=== PATIENT | female | born 1980 | race Caucasian/White ===

== ENCOUNTER 2025-04-19 17:03 | Emergency (ER) | payer SELFPAY ==
--- OUTSIDE RECORDS SUMMARY | 2023-12-12 08:00 | XMS_ITS ---
Author Organization [facility] Address [address] [place] [address] Care Team Providers Care Waitstaff Name Role Phone Keron Serrato Primary Care Provider [phone] REASON FOR VISIT 3 MONTH F/U Medications Medication SIG (Take, Route, Frequency, Duration) Notes Start Date End Date Status metFORMIN HCl 500 MG Tablet 1 tab(s) orally 2 times a day; Duration: 90 days Active Losartan Potassium-HCTZ 100-25 MG Tablet 1 tablet Orally Once a day; Duration: 30 days Active Omeprazole 40 MG Capsule Delayed Release 1 cap(s) orally once a day; Duration: 90 days Active Albuterol Sulfate HFA 108 (90 Base) MCG/ACT Aerosol Solution 2 puff(s) inhaled every 4 hours as needed for cough or wheezing; Duration: 180 days 03/20/2023 Active Atorvastatin Calcium 20 MG Tablet 1 tab(s) orally once a day (at bedtime); Duration: 30 day(s) 11/16/2021 Active Metoprolol Tartrate 25 MG Tablet 1 tab(s) orally 2 times a day; Duration: 90 days Active metroNIDAZOLE 0.75 % Cream 1 application Externally Twice a day; Duration: 30 days please dispense largest tube available 08/11/2022 Active amLODIPine Besylate 5 MG Tablet 1 tab(s) orally once a day; Duration: 90 days Active Loratadine 10 MG Tablet 1 tablet Orally Once a day; Duration: 30 day(s) 08/11/2022 Active Flonase Allergy Relief 50 MCG/ACT Suspension 1 spray in each nostril once a day; Duration: 30 days Active Methocarbamol 750 MG Tablet 2 tab(s) orally twice a day; Duration: 30 day(s) Muscle relaxer Active Claritin 10 MG Tablet 1 tab(s) orally once a day; Duration: 30 day(s) Seasonal allergies Active Social History Social History Comprehensive Health Assessm ent Social Info Question Answer Notes : Date of assessment 08/01/2023 Reconciled Immunizations with Grits Yes Assessed Family/social cultural characteristics Yes Assessed communication needs Yes Medical History of Family Documented Yes Assessed Behaviors Affecting Health Yes Mental health/Substance abuse of patient and fam joni Yes Assessment for health literacy Yes Dental Query performed 08/11/2022 Dental care in the past 12 months? Yes Encounters Encounter Location Date [facility] [address] [address] 12/12/2023 Keron Serrato Plan Of Treatment No Information Progress Notes * Tiburcio CABALLEROOB:1979 (44 yo F)Acc No.[id number]:12/12/2023 UNLOCKED PROGRESS NOTE Progress Note Patient: Brook Benavides Provider: Ileana Ambriz MD :1980 A ge:43 Y S ex:Female Date:12/12/2023 Address:[facility] [address] [facility] Subjective: * Chief Complaints: * 3 MONTH F/U * ROS: R eview of Systems: Cardiovascular N o chest pain. R espiratory N o shortness of breath, At baseline breathing. G astroenterology N o nausea/vomiting, No problems with bowel movements, Usual BM pattern. G enitourinary N o problems with urination, good UOP. C onstitutional N o fever/chills. E yes N o blurred vision. N eurology n o headaches. S moking status N onsmoker. * Medical History: Hypertension Type 2 diabetes Hypercholestrolemia Back pain Carpal Tunnel Headaches Medical History Verified * Surgical History: carpal tunnel Surgical History verified. * Hospitalization/Major Diagno stic Procedure: No Hospitalization Documented. Hospitalization Verified. * Family History: F ather: . M other: alive, diagnosed with Diabetes, Hypertension. 1 son(s) , 2 daughter(s) - healthy. . F amily History Verified.. * Social History: C omprehensive Health Assessment: D ate of assessment 0 08/01/2023 R econciled Immunizations with Grits Y es A ssessed Family/social cultural characteristics Y es A ssessed communication needs Y es M edical History of Family Documented Y es A ssessed Behaviors Affecting Health Y es M ental health/Substance abuse of patient and family Y es A ssessment for health literacy Y es D ental Query performed 0 08/11/2022 D ental care in the past 12 months? Y es S ocial History Verified. * Medications: T akingMethocarbamol 750 MG Tablet 2 tab(s) orally twice a day , Notes to Pharmacist: Muscle relaxerClaritin 10 MG Tablet 1 tab(s) orally once a day , Notes to Pharmacist: Seasonal allergiesFlonase Allergy Relief 50 MCG/ACT Suspension 1 spray in each nostril once a day Loratadine 10 MG Tablet 1 tablet Orally Once a day metroNIDAZOLE 0.75 % Cream 1 application Externally Twice a day , Notes to Pharmacist: please dispense largest tube availableamLODIPine Besylate 5 MG Tablet 1 tab(s) orally once a day Metoprolol Tartrate 25 MG Tablet 1 tab(s) orally 2 times a day metFORMIN HCl 500 MG Tablet 1 tab(s) orally 2 times a day Losartan Potassium-HCTZ 100-25 MG Tablet 1 tablet Orally Once a day Omeprazole 40 MG Capsule Delayed Release 1 cap(s) orally once a day Albuterol Sulfate HFA 108 (90 Base) MCG/ACT Aerosol Solution 2 puff(s) inhaled every 4 hours as needed for cough or wheezing Atorvastatin Calcium 20 MG Tablet 1 tab(s) orally once a day (at bedtime) Medication List reviewed and reconciled with the patientTaking Methocarbamol 750 MG Tablet 2 tab(s) orally twice a day , Notes to Pharmacist: Muscle relaxerTaking Claritin 10 MG Tablet 1 tab(s) orally once a day , Notes to Pharmacist: Seasonal allergiesTaking Flonase Allergy Relief 50 MCG/ACT Suspension 1 spray in each nostril once a day Taking Loratadine 10 MG Tablet 1 tablet Orally Once a day Taking metroNIDAZOLE 0.75 % Cream 1 application Externally Twice a day , Notes to Pharmacist: please dispense largest tube availableTaking amLODIPine Besylate 5 MG Tablet 1 tab(s) orally once a day Taking Metoprolol Tartrate 25 MG Tablet 1 tab(s) orally 2 times a day Taking metFORMIN HCl 500 MG Tablet 1 tab(s) orally 2 times a day Taking Losartan Potassium-HCTZ 100-25 MG Tablet 1 tablet Orally Once a day Taking Omeprazole 40 MG Capsule Delayed Release 1 cap(s) orally once a day Taking Albuterol Sulfate HFA 108 (90 Base) MCG/ACT Aerosol Solution 2 puff(s) inhaled every 4 hours as needed for cough or wheezing Taking Atorvastatin Calcium 20 MG Tablet 1 tab(s) orally once a day (at bedtime) Medication List reviewed and reconciled with the patient * Allergies: y esAllergies Verified. Billing Information: * Procedure Codes: Care Plan Details* * Electronic signature of Keron Serrato MD on 04/19/2025 at 07:06 PM EST Sign off status: Pending Visit Status: N /S (No-Show) * Provider: Ileana Ambriz MD Date: 0 12/12/2023 Generated for Virginie costello/Ren/Jesusitting on: 06/19/2024 07:06 PM EST
--- OUTSIDE RECORDS SUMMARY | 2024-10-07 09:20 | XMS_ITS ---
Author Organization [facility] Address [facility] [place] [address] Care Team Providers Care Chemical Engineering Technologist Name Role Phone Keron Serrato Primary Care Provider [phone] REASON FOR VISIT HbA1c Encounters Encounter Location Date Provider Diagnosis [facility] [place] [address] 10/07/2024 Keron Serrato Plan Of Treatment No Information Progress Notes * Tiburcio CABALLEROOB:1979 (44 yo F)Acc No.[id number]:10/07/2024 UNLOCKED PROGRESS NOTE Progress Note Patient: Brook Benavides Provider: Ileana Ambriz MD :1980 A ge:44 Y S ex:Female Date:10/07/2024 Address[place] [facility] Subjective: * Chief Complaints: * H bA1c Care Plan Details* * Electronic signature of Keron Serrato MD on 04/19/2025 at 07:06 PM EST Sign off status: Pending Visit Status: C ANC BY OF (CANC BY OFFICE) * Provider: Ileana Ambriz MD Date: 0 10/07/2024 Generated for Printi ng/Faxing/eTransmitting on: 1 06/19/2024 07:06 PM EST
[2025-04-19] VITALS (19 sets, daily range): BP systolic 147–194; BP diastolic 99–124; PULSE 67–104; RESP 13–26; TEMP 36.6–36.8; O2SAT 97–100
--- NOTE | ~2025-04-19 | XR_ITS ---
EXAMINATION: XR chest 1V portable COMPARISON: No comparisons available. HISTORY: CHEST PAIN FINDINGS: The lungs are clear, no effusion. No pneumothorax. Heart is normal size. Mediastinal and hilar contours are within normal limits. Bony thorax no acute abnormality. Miscellaneous: None Impression: No acute cardiopulmonary abnormality. Reviewed, dictated and finalized at location [facility]. [facility] Impression: No acute cardiopulmonary abnormality.
--- NOTE | ~2025-04-19 | CT_ITS ---
EXAMINATION: CT brain wo con COMPARISON: None HISTORY: HEADACHE TECHNIQUE: Axial images were obtained through the brain without IV contrast. CT scan performed using dose optimization techniques including the following automated exposure control; adjustment of mA and/or kV; use of iterative reconstruction technique. Automatic exposure control was used to reduce radiation dose. Permanent radiation dose record is archived to PACS. FINDINGS: No acute infarct or parenchymal hemorrhage. No abnormal mass or mass effect. No midline shift. No extra-axial fluid collections. No hydrocephalus. . Mastoid air cells unremarkable. Sinuses and orbits unremarkable. No acute fracture. No significant facial or scalp soft tissue swelling evident. No radiopaque foreign body is seen. Impression: 1.No acute intracranial abnormality. Reviewed, dictated and finalized at location [facility]. [employer] Impression: 1.No acute intracranial abnormality.
--- NOTE | 2025-04-19 17:08 | ECG_ITS ---
Test Date: 2025-04-19 17:10:58 Measurements Intervals [place] Rate: 97 P: 28 PA: 142 QRS: 3 QRSD: 78 T: 46 QT: 335 QTc: 426 Interpretive Statements SINUS RHYTHM Poor R-wave progression No previous ECG available for comparison Electronically Signed On 04-20-2025 09:31:28 HADOOP APPLICATION DEVELOPER by Freddy Zamora M.D.
--- NOTE | 2025-04-19 17:26 | ED.GENADULT ---
HPI - General Adult General Chief complaint: Recheck/Abnormal Lab/Rx Stated complaint: htn Time Seen by Provider: 04/19/25 17:25 Source: patient Mode of arrival: ambulatory Limitations: no limitations History of Present Illness HPI narrative: 44 YEARS OLD WHITE FEMALE CAME TO THE ED WITH DIZZINESS, OCCIPITAL HEADACHE, DOES NOT FEEL GOOD, HARD TO BREATHE FOR THE LAST 2 WEEKS, STEADY. PATIENT RAN OUT OF BLOOD PRESSURE MEDICATION 1 MONTH AGO. PATIENT IS SUPPOSED TO BE ON LISINOPRIL, AMLODIPINE AND METOPROLOL OF UNKNOWN DOSES PATIENT IS FROM [place] SHE DENIES ANY FEVER, CHILLS, CHEST PAIN OR ABDOMINAL PAIN OR BACK PAIN Related Data Allergies Allergy/AdvReac Type Severity Reaction Status Date / Time No Known Allergies Allergy Verified 04/19/25 17:56 Review of Systems Review of Systems: All systems reviewed & are unremarkable except as noted in HPI and below Exam Narrative: GENERAL APPEARANCE: WELL-DEVELOPED, WELL-NOURISHED SKIN: NORMAL COLOR HEAD: NORMOCEPHALIC, NONTRAUMATIC EYES: CLEAR CONJUNCTIVA ENT: OROPHARYNX NORMAL, EARS NORMAL, NOSE NORMAL NECK: SUPPLE, NONTENDER CHEST AND RESPIRATORY: AIRWAY PATENT, NO RESPIRATORY DISTRESS, NO ACCESSORY MUSCLE USE HEART: REGULAR RATE/RHYTHM ABDOMEN: SOFT, NONTENDER, NO ORGANOMEGALY, QUIET BOWEL SOUNDS VASCULAR: NORMAL PERIPHERAL PULSES, NORMAL CAPILLARY REFILL. MUSCULOSKELETAL: NORMAL RANGE OF MOTION, NONTENDER BACK NEUROLOGIC: ALERT AND ORIENTED ?3, FOREST SCIENCE PROFESSOR IS NORMAL TESTED, NO GROSS MOTOR DEFICIT Course Vital Signs Vital signs: Vital Signs Temperature 36.6 C 04/19/25 17:04 Pulse Rate 104 H 04/19/25 17:04 Respiratory Rate 20 04/19/25 17:04 Blood Pressure 194/124 H 04/19/25 17:04 Pulse Oximetry 97 04/19/25 17:04 Oxygen Delivery Room Air 04/19/25 17:04 Temperature 36.6 C 04/19/25 17:04 Pulse Rate 67 04/19/25 19:03 Respiratory Rate 24 H 04/19/25 19:01 Blood Pressure 184/120 H 04/19/25 19:01 Pulse Oximetry 98 04/19/25 19:01 Oxygen Delivery Room Air 04/19/25 17:04 Medical Decision Making [facility] Narrative Medical decision making narrative: PATIENT RAN OUT OF BLOOD PRESSURE MEDICATION 1 MONTH AGO, 2 WEEKS LATER STARTED HAVING HEADACHE, DIZZINESS, HARD TO BREATHE, NOT FEELING WELL. VITAL SIGNS ON ARRIVAL SHOWING BLOOD PRESSURE 194/124, HEART RATE 104 OTHERWISE WITHIN NORMAL LIMIT PHYSICAL EXAMINATION SHOWING INSIGNIFICANT ABNORMALITIES EXCEPT DEPRESSION LIKE SIGNS DIFFERENTIAL DIAGNOSIS INCLUDE HYPERTENSIVE ENCEPHALOPATHY, RENAL FAILURE, CORONARY ARTERY DISEASE, CONGESTIVE HEART FAILURE, NONCOMPLIANCE WITH MEDICATIONS BLOOD WORKUP TODAY INCLUDES CBC, CMP, TROPONIN, PROBNP SHOWED WBC 10.1 PRO BNP 208, CHEST X-RAY SHOWED NO ACUTE ABNORMALITIES EKG ON ARRIVAL SHOWED NORMAL SINUS RHYTHM AT 97 BEATS PER MINUTE, MINIMAL CRITERIA FOR LVH, ANTERIOR MYOCARDIAL INFARCTION AGE INDETERMINATE, BORDERLINE EKG, NO PREVIOUS EKG AVAILABLE FOR COMPARISON CT HEAD WITHOUT CONTRAST SHOWED NO ACUTE ABNORMALITY Differential Diagnosis Differential Diagnosis: NONCOMPLIANCE WITH MEDICATION, UNCONTROLLED HYPERTENSION, Vital Signs Vital Signs: Vital Signs Temperature 36.6 C 04/19/25 17:04 Pulse Rate 104 H 04/19/25 17:04 Respiratory Rate 20 04/19/25 17:04 Blood Pressure 194/124 H 04/19/25 17:04 Pulse Oximetry 97 04/19/25 17:04 Oxygen Delivery Room Air 04/19/25 17:04 Temperature 36.6 C 04/19/25 17:04 Pulse Rate 67 04/19/25 19:03 Respiratory Rate 24 H 04/19/25 19:01 Blood Pressure 184/120 H 04/19/25 19:01 Pulse Oximetry 98 04/19/25 19:01 Oxygen Delivery Room Air 04/19/25 17:04 Lab Data 04/19/25 17:54 04/19/25 17:54 Labs: Lab Results 04/19/25 04/19/25 04/19/25 Range/Units 17:54 18:49 18:52 WBC 10.1 H (4.5-10.0) K/mm3 RBC 4.49 (4.2-5.4) M/mm3 Hgb 13.3 (12.0-15.0) g/dL Hct 37.5 (37.0-47.0) % MCV 83.5 (80-100) fl MCH 29.6 (26-34) pg MCHC 35.5 (32-36) g/dl RDW 12.0 (11.5-14.5) % Plt Count 377 H (150-375) k/mm3 MPV 9.1 (7.4-10.4) fl Immature Gran % (Auto) 0.3 (0-0.5) % Neut % (Auto) 63.0 (45.5-73.1) % Lymph % (Auto) 27.6 (18.3-44.2) % [place] % (Auto) 5.3 (2.6-8.5) % Eos % (Auto) 3.4 (0-4.4) % Baso % (Auto) 0.4 (0.2-1.2) % Lymph # (Auto) 2.79 (0.9-3.2) K/mm3 [place] # (Auto) 0.5 (0.1-0.6) K/mm3 Eos # (Auto) 0.3 (0-0.3) K/mm3 Baso # (Auto) 0.0 (0.0-0.1) K/mm3 Abs Immat Gran (auto) 0.03 (0.00-0.031) K/mm3 Absolute Neuts (auto) 6.4 (1.3-6.7) K/mm3 Absolute Nucleated RBC 0.000 (0.0-0.012) K/mm3 Nucleated RBC % 0.0 (0.0-0.2) % PT 13.7 (11.1-14.7) Seconds INR 1.1 APTT 24.5 (22.3-36.8) Seconds Sodium 139 (137-145) mmol/L Potassium 3.5 (3.4-5.0) mmol/L Chloride 106 (98-107) mmol/L Carbon Dioxide 26 (22-30) mmol/L Anion Gap 7 (4-12) mmol/L BUN 15 (7-17) mg/dL Creatinine 0.81 (0.7-1.0) mg/dL Estim Creat Clear Calc 80 ml/min Estimated GFR > 60 (59 - ) Glucose 157 H (65-110) mg/dL Calcium 9.1 (8.4-10.2) mg/dL Total Bilirubin 0.8 (0.2-1.3) mg/dL AST 33 (14-36) U/L ALT 25 (6-35) U/L Alkaline Phosphatase 69 (38-126) U/L Troponin I < 0.012 (0.000-0.034) ng/mL NT-Pro-B Natriuret Pep 208 H (19.9-100) pg/mL Total Protein 6.9 (6.3-8.2) g/dL Albumin 3.9 (3.5-5.1) g/dL Urine Color Yellow (Yellow) Urine Appearance Clear (Clear) Urine pH 6.0 (5.0-9.0) Ur Specific [place] 1.023 (1.001-1.035) Urine Protein Negative (Negative) mg/dL Urine Glucose (UA) Trace H (Negative) mg/dL Urine Ketones Negative (Negative) mg/dL Ur Blood (Man) Negative (Negative) Urine Nitrate Negative (Negative) Urine Bilirubin Negative (Negative) Urine Urobilinogen 0.2 (<2.0) mg/dL Leukocyte Esterase Rfl Negative (Negative) MANNY/UL POC Urine HCG, Qual Negative (Negative) Imaging Data Radiologist's impression: Impressions Head CT 04/19/25 17:49 Impression: 1.No acute intracranial abnormality. Chest X-Ray 04/19/25 17:53 Impression: No acute cardiopulmonary abnormality. ECG Data EKG #1: Attestation: I personally reviewed and interpreted this ECG as follows: ECG completion date: 04/19/25 Interpretation: NORMAL SINUS RHYTHM AT 97 BEATS PER MINUTE, CRITERIA FOR LVH, POSSIBLE ANTERIOR MYOCARDIAL INFARCTION INDETERMINATE AGE, BORDERLINE EKG, NO OLD EKG AVAILABLE FOR COMPARISON Critical Care Time Critical Care Time Critical Care Time: No Discharge Plan Discharge Clinical Impression: Hypertension, Non-compliance Patient Disposition: Home Condition: Improved Instructions: Hypertension (ED) Additional Instructions: RETURN IF SYMPTOMS ARE WORSENING , CALL YOUR FAMILY PHYSICIAN FOR APPOINTMENT, TAKE TYLENOL NEEDED FOR ACHES AND PAIN, CONTINUE HOME MEDICATIONS. Patient Language: Japanese Prescriptions: New losartan 50 mg tablet 50 mg PO DAILY Qty: 30 0RF amlodipine 5 mg tablet 5 mg PO DAILY Qty: 30 0RF metoprolol tartrate 25 mg tablet 25 mg PO BID Qty: 30 0RF Follow-up/Referrals: PHYSICIAN NOT ON STAFF,NONSTAFF [Primary Care Provider] Fahad Latham MD [Physician, Family Practice] - 04/22/25
[2025-04-19] MEDS: METOPROLOL TARTRATE INJ 5 MG/5 ML VIAL IV PUSH ×3 (17:58→19:03)
[2025-04-19 18:03] LABS: Hematocrit 37.5 % (37.0-47.0); Hemoglobin 13.3 g/dL (12.0-15.0); Immature Granulocyte Percent A 0.3 % (0-0.5); Lymphocytes Absolute Auto 2.79 K/mm3 (0.9-3.2); Mean Corpuscular HGB Conc 35.5 g/dl (32-36); Mean Corpuscular Hemoglobin 29.6 pg (26-34); Mean Corpuscular Volume 83.5 fl (80-100); Nucleated Red Blood Cells Absolute Auto 0.000 K/mm3 (0.0-0.012); Nucleated Red Blood Cells Perc 0.0 % (0.0-0.2); Platelet Count Result 377 k/mm3 (150-375); Red Blood Count 4.49 M/mm3 (4.2-5.4); White Blood Count 10.1 K/mm3 (4.5-10.0)
--- OUTSIDE RECORDS SUMMARY | 2025-04-19 18:06 | XMS_ITS | Clinical Summary ---
Author Organization [facility] Address [address] [place] [address] Care Team Providers Care Press Tender Star [place] Name Role Phone Unavailable Primary Care Provider Unavailabl e Medications QUEtiapine (SEROQUEL) 50 MG tabletIndications: Rosacea 07/11/19 20 Active omeprazole (PRILOSEC) 40 MG capsuleIndications :Rosacea Take 40 mg by mouth daily 03/14/20 20 Active amoxicillin (AMOXIL) 875 mg tabletIndications: Rosacea Take 875 mg by mouth 2 (two) times daily 02/14/20 20 Active rosuvastatin (CRESTOR) 5 MG tabletIndications: Neck pain rosuvastatin 5 mg tablet 1 po qd 01/14/20 20 Active neomycin-polymyxin -hydrocortisone (CORTISPORIN) otic solutionIndication s:Neck pain neomycin-polymyxi n-hydrocort 3.5 mg/mL-10,000 unit/mL-1 % ear solution 12/11/19 20 Active traMADoL (ULTRAM) 50 mg tabletIndications: Chronic neck pain Take 1 tablet (50 mg total) by mouth every 8 (eight) hours as needed 30 tablet 0 11/18/19 22 Active DULoxetine (CYMBALTA) 60 MG capsuleIndications :Rosacea 07/11/19 20 Active methocarbamoL (ROBAXIN) 750 MG tabletIndications: Chronic neck pain Take 1 tablet (750 mg total) by mouth 3 (three) times daily as needed 45 tablet 0 11/18/19 22 Active azithromycin 250 mg tabletIndications: Cough present for greater than 3 weeks Take 2 tablets (500 mg) on Day 1, followed by 1 tablet (250 mg) once daily on Days 2 through 5. 6 tablet 0 03/15/20 21 Active buPROPion HCL (WELLBUTRIN XL) 150 mg 24 hr tabletIndications: Neck pain bupropion HCl XL 150 mg 24 hr tablet, extended release 12/11/19 20 Active promethazine-dextr omethorphan (PROMETHAZINE-DM) 6.25-15 mg/5 mL syrupIndications:C ough present for greater than 3 weeks Take 5 mLs by mouth nightly as needed for Cough 118 mL 0 03/15/20 21 Active traZODone (DESYREL) 100 MG tabletIndications: Neck pain trazodone 100 mg tablet 12/11/19 20 Active fexofenadine (CHEPE) 180 MG tabletIndications: Rosacea Take by mouth 10/19/19 18 Active ondansetron (ZOFRAN) 4 MG tablet Take 1 tablet (4 mg total) by mouth every 12 (twelve) hours as needed for Nausea 15 tablet 0 11/18/19 22 Active risperiDONE (RISPERDAL) 3 MG tabletIndications: Rosacea 07/20/19 20 Active polyethylene glycol (GOLYTELY) 236-22.74-6.74 -5.86 gram oral solutionIndication s:Neck pain GaviLyte-G 236 gram-22.74 gram-6.74 gram-5.86 gram oral solution 01/14/20 20 Active cephalexin (KEFLEX) 500 MG capsuleIndications :Neck pain cephalexin 500 mg capsule 1 po BID 12/11/19 20 Active ondansetron (ZOFRAN-ODT) 4 MG disintegrating tabletIndications: Neck pain ondansetron 4 mg disintegrating tablet 12/11/19 20 Active acetaminophen-code ine (TYLENOL #3) 300-30 mg per tabletIndications: Neck pain acetaminophen 300 mg-codeine 30 mg tablet 12/11/19 20 Active naproxen (NAPROSYN) 500 MG tabletIndications: Rosacea 500 mg 1 tab, PO, Tab, BID, # 20 tab, Refill(s) 0 05/23/20 15 Active ibuprofen (MOTRIN) 600 MG tabletIndications: Rosacea 600 mg 03/11/20 20 Active mupirocin (BACTROBAN) 2 % ointmentIndication s:Rosacea mupirocin 2 % topical ointment topically TID 12/11/19 20 Active dicyclomine (BENTYL) 20 mg tabletIndications: Neck pain dicyclomine 20 mg tablet 12/11/19 20 Active meloxicam (MOBIC) 15 MG tabletIndications: Rosacea meloxicam 15 mg tablet 1 po qd 12/11/19 20 Active ARIPiprazole (ABILIFY) 10 mg tabletIndications: Rosacea Take by mouth 08/25/19 18 Active diclofenac (VOLTAREN) 75 MG EC tabletIndications: Neck pain diclofenac sodium 75 mg tablet,delayed release 12/11/19 20 Active predniSONE (DELTASONE) 50 MG tabletIndications: Neck pain prednisone 50 mg tablet 12/11/19 20 Active oxyCODONE-acetamin ophen (PERCOCET) 5-325 mg per tabletIndications: Lumbar spondylolysis Take 1 tablet by mouth every 8 (eight) hours as needed 40 tablet 0 09/08/19 21 Active QUEtiapine (SEROQUEL) 100 MG tabletIndications: Rosacea Take 100 mg by mouth nightly 07/24/19 20 Active ibuprofen (MOTRIN) 600 MG tabletIndications: Rosacea TAKE 1 TABLET BY MOUTH EVERY 6 HOURS NEEDED FOR CRAMPS/PAIN 03/11/20 20 Active amLODIPine (NORVASC) 5 mg tablet Take 1 tablet (5 mg total) by mouth daily for blood pressure 30 tablet 0 07/08/19 22 Active tiZANidine (ZANAFLEX) 4 MG tabletIndications: Muscle spasm Take 1 tablet (4 mg total) by mouth every 8 (eight) hours as needed 30 tablet 5 05/18/20 20 Active gabapentin (NEURONTIN) 300 MG capsuleIndications :Neck pain Take 1 capsule (300 mg total) by mouth 3 (three) times daily 90 capsule 5 01/14/20 20 Active famotidine (PEPCID) 40 MG tabletIndications: Rosacea Take 1 tablet (40 mg total) by mouth 2 (two) times daily as needed for Heartburn 60 tablet 5 05/18/20 20 Active metFORMIN (GLUCOPHAGE) 500 MG tabletIndications: Rosacea Take 1 tablet (500 mg total) by mouth daily with breakfast 90 tablet 1 05/18/20 20 Active Active Problems Problem Noted Date Diagnosed Date Type 2 diabetes mellitus wit hout complication, without long-term current use of insulin 01/21/2020 Neck pain 01/21/2020 Muscle spasm 01/21/2020 Rash of face 08/05/2019 Rosacea 08/05/2019 Chronic idiopathic constipation 07/01/2019 Dizziness and giddiness 07/01/2019 Pressure sensation in both ears 07/01/2019 Pars defect with spondylolisthesis 10/30/2018 Radiculopathy of thoracolumbar region 10/17/2018 Notalgia 10/17/2018 Hyperglycemia 10/17/2018 Essential hypertension 10/17/2018 Immunizations Immunization Administration Dates Next Due Hepatitis A / Hepatitis B (WPJ=884) 01/30/2008,0 01/01/2008 Influenza Inj (PF) Quad 0.5ml (EDZ=441) 02/16/20 18,02/14/2018 Influenza Inj (PF) TRIVALENT 0.5ml (CSQ=166) ,03/20/2013 Family History Medical History Relation Name Comments Hypertension Father Depression Maternal Uncle Stroke Maternal Uncle Diabetes Mother Hypertension Mother Stroke Paternal Uncle Relation Name Status Comments Father Alive Maternal Uncle Mother Alive Paternal Uncle Social History Tobacco Use Types Packs/Day Years Used Date Smoking Tobacco: Former Cigarettes Q uit: 06/30/2020 Smokeless Tobacco: Never Alcohol Use Standard Drinks/Week Comments Not Currently 0 (1 standard drink = 0.6 oz pur e alcohol) Comments Unknown Sex and Gender Information Value Date Recorded Sex Assigned at Not on file Legal Sex Female 2:27 AM EST Gender Identity Not on file Sexual Orientation Not on file Last Filed Vital Signs Vital Sign Reading Time Taken Comments Blood Pressure 133/98 11/17/2021 8:44 AM EDT Pulse 81 11/17/2021 8:44 AM EDT Temperature 36.8 C (98.2 F) 03/15/2021 2:25 PM EDT Respiratory Rate - - Oxygen Saturation 95% 03/15/2021 2:25 PM EDT Inhaled Oxygen Concentration - - Weight 94.3 kg (208 lb) 11/17/2021 8:44 AM EDT Height 160 cm (5' 3) 11/17/2021 8:44 AM EDT Body Mass Index 36.85 11/17/2021 8:44 AM EDT Plan of Treatment Health Maintenance Due Date Last Done Comments DIABETES Nephropathy Screening Microalbumin 1980 Hepatitis C Screening 1980 TdaP/Td Vaccine (1 - Tdap) 1991 Pneumococcal Vaccine 19-49 years At Risk patient (1 of 2 - PCV) 1999 Pap + HPV Screening 2001 Hepatitis B Vaccine (3 of 3 - Hep B Twinrix 3-dose series) 07/03/2008 01/30/2008, 01/01/2008 DIABETES Hemoglobin A1c 04/23/2019 10/21/2018 DIABETES Foot Exam 03/13/2023 DIABETES Retinal Dilated Eye Exam 03/13/2023 Mammogram Screening 03/13/2023 08/07/2014 Influenza Vaccine (#1) 2025 8, 02/14/2018, 05/03/2014, Additional history exists Hepatitis A Vaccine Aged Out 01/30/2008, 8 No longer eligible based on patient's age to complete this topic Meningococcal ACWY Vaccine Aged Out N o longer eligible based on patient's age to complete this topic Procedures Procedure Name Priority Date/Time Associated Diagnosis Comments HISTORICAL HEMOGLOBIN A1C W/REFL TO GLYCOMARK Routine 10/21/2018 1:50 PM EDT Hyperglycemia LEGACY MAMMO DIAGNOSTIC [facility]ILATERAL Routine 08/07/2014 11:25 AM EST Lump or mass in breast from Last 3 Months or Most Recently Relevant to Health Maintenance Results * Historical Hemoglobin A1c (10/21/2018 1:50 PM EDT) Hemoglobin A1C 6.1 4.2 - 6.8 % OF TOTAL HGB 10/21/2018 6:58 PM EDT OTHER LAB; SEE [facility] [employer] [facility] Estimated Average Glucose (MG/DL) 128.4 mg/dL 10/21/2018 6:58 PM EDT OTHER LAB; SEE [facility] Comment: THE ESTIMATED AVERAGE GLUCOSE WAS CALCULATED USING THE EQUATION (28.7 X HA1C) - 46.7. Blood 10/21/2018 1:50 PM EDT Narrative OTHER LAB; SEE [facility] - 10/21/2018 6:58 PM EDT Specimen Type:Blood us Conversions Provider LAB BLOOD ORDERABLES Fin al Result OTHER LAB; SEE [facility] * LEGACY MAMMO DIAGNOSTIC [facility] (08/07/2014 11:25 AM EST) Anatomical Region Laterality Modality Breast Mammography Narrative 08/07/2014 12:56 PM EST PROCEDURE / CPT CODE:MAMMO DIAGNOSTIC [facility] BILATERAL ORDERING PRIORITY :RTN DATE/TIME PERFORMED :08/07/2014 11:25 DICTATING RADIOLOGIST:TRAVIS KING CLINICAL INDICATIONS: ORDERING PHYSICIAN :MARVA COPELAND Digital diagnostic mammogram with tomosynthesis views. CAD assistance. Indication:Clinical breast exam abnormality left breast Prior: None this is baseline Findings: The breast is composed of scattered fibroglandular density. No mass, distortion, or suspicious calcification. Tomosynthesis images are negative. No abnormality in the left lateral breast, mostly fatty tissue in the area of reported palpable concern. Ultrasound to further assess. In the left lateral breast there is normal, mostly fatty tissue.. Impression: 1. Negative bilateral baseline mammogram, recommend annual screening beginning at age 40. 2. Negative assessment of palpable area left lateral breast. Recommend clinical followup. BI-RADS 1, negative. Electronically signed by: TRAVIS KING M.D. 08/07/2014 12:56 PM Procedure Note Travis King MD - 08/27/2023 PROCEDURE / CPT CODE:MAMMO DIAGNOSTIC MARY KATE BILATERAL ORDERING PRIORITY :RTN DATE/TIME PERFORMED :08/07/2014 11:25 DICTATING RADIOLOGIST:TRAVIS KING CLINICAL INDICATIONS: ORDERING PHYSICIAN :MARVA COPELAND Digital diagnostic mammogram with tomosynthesis views. CAD assistance. Indication:Clinical breast exam abnormality left breast Prior: None this is baseline Findings: The breast is composed of scattered fibroglandular density. No mass, distortion, or suspicious calcification. Tomosynthesis images are negative. No abnormality in the left lateral breast, mostly fatty tissue in the area of reported palpable concern. Ultrasound to further assess. In the left lateral breast there is normal, mostly fatty tissue.. Impression: 1. Negative bilateral baseline mammogram, recommend annual screening beginning at age 40. 2. Negative assessment of palpable area left lateral breast. Recommend clinical followup. BI-RADS 1, negative. Electronically signed by: TRAVIS KING M.D. 08/07/2014 12:56 PM us Conversions Provider MD JALLOH MAMMOGRAPHY ORDERABL ES Final Result from Last 3 Months or Most Recently Relevant to Health Maintenance
--- OUTSIDE RECORDS SUMMARY | 2025-04-19 18:06 | XMS_ITS | Patient Health Record ---
Author Organization [facility] Address [address] [place] [address] [place] [address] Care Team Providers Care [place] Name Role Phone Danii Castaneda Unavailable [phone] Juliano Osorio Unavailable Unavailable Reason For Referral No Information Medications Medication SIG (Take, Route, Frequency, Duration) Notes Start Date End Date Status SEROquel 25 mg tablet 1 tab(s) orally 3 times a day; Duration: 30 day(s) Active amLODIPine Besylate 2.5 mg tablet 1 tab(s) orally once a day; Duration: 30 day(s) Active Losartan Potassium 25 mg tablet 1 tab(s) orally once a day; Duration: 30 day(s) Active metFORMIN HCl 500 mg tablet 1 tab(s) ora lly 2 times a day; Duration: 30 day(s) Active risperiDONE 1 mg tablet 1 tab(s) orally 2 times a day; Duration: 30 day(s) Active Social History Tobacco Use: Social History Observation Description Date Details (start date - stop date) Current Smoker NA - NA Social History General Social Info Question Answer Notes DO NOT ANSWER HEREAnswer Above in TOBACCO CONTROL-Smoking Do you smoke? Yes Alcohol Control Did you have a drink containing alcohol in the past year? No Points 0 Interpretation Negative Tobacco Control Are you a: Current smoker Drug/Alcohol: Social Info Question Answer Notes OPIOID Risk Tool (2018 Edition) Family Hx Alcohol? No Family Hx Illegal Drugs? No Family Hx Rx Drugs? No Personal Hx Alcohol? No Personal Hx Illegal Drugs? No Personal Hx Rx Drugs? No Age between 16-45 years? No History of Preadolescent Sexual Abuse? No ADD, OCD, Bipolar, Schizophrenia? Yes Depression? No TOTAL SCORE 2 Risk Level for Opioid Use low Problems Problem Type SNOMED Code ICD Code Onset Dates Problem Status W/U Status Risk Notes Problem Acquired spondylolisthesis (285305207) Spondylolisthesis , lumbar region (M43.16) Active confirmed Problem Degeneration of lumbar intervertebral disc (82178322) Other intervertebral disc degeneration, lumbar region (M51.36) Active confirmed Plan Of Treatment No Information Insurance Providers Payer Name Payer Address Payer Phone Subscriber Number Group Number Insured Name Patient Relationship to Insured Coverage Start Date Coverage End Date Medicaid [employer] [address] [address] [place] [address] [id number] [place] [employer] Self - patient is the insured 9 Medical (General) History Medical History History ICD Code Hypertension Diabetes mellitus Anxiety disorder Surgical History Surgery Date(Month/Year) Tubal ligation carpal tunnel Hospitalization History Reason Date(Month/Year) see surgical list
--- OUTSIDE RECORDS SUMMARY | 2025-04-19 18:06 | XMS_ITS | Clinical Summary ---
Author Organization [facility] em Address [address] [place] [address] Care Team Providers Care Pastry Cook Apprentice Name Role Phone Gabriel Blount MD Primary Care Provider [phone] Allergies No known active allergies Medications mupirocin (Bactroban) 2 % ointment mupirocin 2 % topical ointment topically TID 0 Active oxycodone HCl (ROXICODONE) 10 mg tablet Take by mouth Active cephalexin (KEFLEX) 500 MG capsule Take 1 capsule (500 mg total) by mouth 4 (four) times a day 40 capsule 4 Active losartan (COZAAR) 25 MG tablet Take 1 tablet (25 mg total) by mouth daily Active amLODIPine (NORVASC) 5 MG tablet Take 1 tablet (5 mg total) by mouth daily Active metFORMIN (GLUCOPHAGE) 500 MG tablet Take 1 tablet (500 mg total) by mouth 2 (two) times a day Active Active Problems Problem Noted Date Diagnosed Date Injury of right ulnar nerve, unspecified injury location, initial encounter 05/21/2024 Muscle spasm 04/25/2024 Acute cystitis without hematuria 04/25/2024 Unresponsive 04/25/2024 Methamphetamine abuse 04/25/2024 Immunizations Immunization Administration Dates Next Due Tdap 05/18/2024 Social History Tobacco Use Types Packs/Day Years Used Date Smoking Tobacco: Every Day Cigarettes Smokeless Tobacco: Never Tobacco Cessation:Ready to Q uit: Not Asked; Counseling Given: Not Answered Alcohol Use Standard Drinks/Week Comments Not Currently 0 (1 standard drink = 0.6 oz pur e alcohol) Comments No Sex and Gender Information Value Date Recorded Sex Assigned at Not on file Legal Sex Female 10:06 PM EDT Gender Identity Not on file Sexual Orientation Not on file Last Filed Vital Signs Vital Sign Reading Time Taken Comments Blood Pressure 125/95 05/30/2024 11:32 AM EST Pulse 66 05/30/2024 11:32 AM EST Temperature 37 C (98.6 F) 05/30/2024 11:32 AM EST Respiratory Rate 18 05/30/2024 11:32 AM EST Oxygen Saturation 100% 05/30/2024 11:32 AM EST Inhaled Oxygen Concentration 21% 05/18/2024 3 :19 PM EST Weight 79.4 kg (175 lb 0.7 oz) 05/30/2024 11:32 AM EST Height 160 cm (5' 3) 05/30/2024 11:32 AM EST Body Mass Index 31.01 05/30/2024 11:32 AM EST Plan of Treatment Health Maintenance Due Date Last Done Comments HIV SCREENING 1980 HIV Screening Every 1 Year 1980 HIV Screening Once 1980 Hepatitis C Screening 1980 COVID-19 Vaccine (1 of 4) 1992 HEPATITIS B VACCINES (1 of 3 - 19+ 3-dose series) 1999 Pneumococcal Vaccine: 0 to 64 Years (1 of 2 - PCV) 1999 HPV/Cotest 2010 Cervical Cancer Screening 04/09/2020 Pap Smear 04/09/2020 04/09/2017 Mammogram 2020 Influenza vaccine (#1) 2025 8, 02/14/2018, 05/03/2014, Additional history exists DTAP/TDAP/TD (2 - Td or Tdap) 05/18/2034 05/18/2024 RSV (1 - 1-dose 75+ series) 2055 Meningococcal B Aged Out No longer el igible based on patient's age to complete this topic Procedures Procedure Name Priority Date/Time Associated Diagnosis Comments PAP SMEAR Routine 04/09/2017 10:30 AM EDT from Last 3 Months or Most Recently Relevant to Health Maintenance Results * PAP Smear (04/09/2017 10:30 AM EDT) 04/09/2017 10:3 0 AM EDT Narrative MCG CONVERSION - 04/10/2017 12:41 PM EDT ADDENDUM NOTE: Testing was performed and interpreted at the [facility], [place], [place]. Please see powerchart for their report. Test Ordered: HPV GENOTYPING Specimen: Cervical specimens in PreservCyt solution. Result: 1 HPV16 Negative 2 HPV18 Negative 3 HPV Other (31,33,35,39,45,51,52,56,58,59,66 and 68) Negative Methodology: The yazan HPV ([facility]) test is a FDA approved IVD test. Major processes involved for this test is (1) automated specimen preparation to simultaneously extract HPV and Cellular DNA (2)PCR amplification of target DNA sequences with gene specific primers and (3) real time detection of cleaved fluorescent l abeled HPV and beta-globin specific oligonucleotide detection probe. The Yazan HPV test uses primers to define a sequence of approximately 200 nucleotides within the polymorphic L1 region of the HPV genome. A pool of HPV primers present in the master mix is designed to amplify HPV DNA from 14 high-risk types (16,18,31,33,35,39,45,51,52,56,58,59,66 and 68). The amplified signals from 12 high-risk (HR) HPV types (31,33,35,39,45,51,52,56,58,59,66 and 68)is detected using same fluorescent dye, while HPV16, HPV18 and beta globin signals (internal control)signals are each detected with their own dedicated fluorescent dye. Test Limitations: The Yazan HPV test detects DNA of the above mentioned 14 high-risk types. This test does not detect DNA of HPV low-risk types (e.g.6, 11, 42, 43, 44). The performance of the Yazan HPV test has not been adequately established for HPV vaccinated individuals. Test only the indicated specimen type. The Yazan HPV test has only been validated for use with cervical specimens collected in PreservCyt solution using a Pap Perfect plastic spatula and Cytobrush plus GT gentle touch. Detection of high-risk HPV is dependent on the number of copies present in the specimen and may be affected by specimen collection methods, patient factors, stage of infection and the presence of interfering substances. A negative high-risk HPV result does not exclude the possibility of future cytologic HSIL or underlying CIN2-3 or cancer. Reference: Laboratory Procedure Manual for yazan HPV Test ([employer] Disclaimer: Yazan HPV test does not constitute a definitive HPV report for all HPV infection individuals. Thus, interpretation is given as a probability. It should be realized that there are many possible sources of diagnostic error. Genotyping errors can result from trace contamination of polymerase chain reactions and from rare genetic variants that interfere with analysis. [facility] is certified by CLIA ([id number]) for high complexity clinical testing. I attest I have personally reviewed the specimen/slides and agree with the above findings.Darren Romero MDElectronic SignatureVerified: 13-Apr-2017 15:00NGP/Resident:CIGAR MAKING SUPERVISOR CYTOLOGIC DIAGNOSIS INTERPRETATION Cervical/Vaginal:- Negative for intraepithelial lesion or malignancy. CIGAR MAKING SUPERVISOR CYTOLOGIC ADEQUACY INTERPRETATION Satisfactory for interpretation. Endocervical cells present. CIGAR MAKING SUPERVISOR CYTOLOGIC CLINICAL HISTORY Date of LMP: 03-19-17 : _ Hormones: _ Other clinical information: _ The Pap Smear is a screening test designed to help detect premalignant and malignant conditions of the uterine cervix. It is not a diagnostic test and should not be used as a sole means of detecting cervical cancer. Both false-negative and false- positive reports occur.Solutions Sales Executive:KADEEM 10-Apr-2017 12:41Completed by: Evangelista Dyer Electronic Signature 10-Apr-2017 12:41GYN CYTOLOGIC GROSS DESCRIPTION Received a thin prep vial with 35 ml of hazy fluid. Procedure Note 04/03/2024 ADDENDUM NOTE: Testing was performed and interpreted at the [place], [place]. Please see powerchart for their report. Test Ordered: HPV GENOTYPING Specimen: Cervical specimens in PreservCyt solution. Result: 1 HPV16 Negative 2 HPV18 Negative 3 HPV Other (31,33,35,39,45,51,52,56,58,59,66 and 68) Negative Methodology: The yazan HPV ([facility]) test is a FDA approved IVD test. Majorprocesses involved for this test is (1) automated specimen preparation tosimultaneously extract HPV and Cellular DNA (2)PCR amplification of targetDNA sequences with gene specific primers and (3) real time detection ofcleaved fluorescent l abeled HPV and beta-globin specific oligonucleotidedetection probe. The Yazan HPV test uses primers to define a sequence ofapproximately 200 nucleotides within the polymorphic L1 region of the HPVgenome. A pool of HPV primers present in the master mix is designed toamplify HPV DNA from 14 high-risk types(16,18,31,33,35,39,45,51,52,56,58,59,66 and 68). The amplified signalsfrom 12 high-risk (HR) HPV types (31,33,35,39,45,51,52,56,58,59,66 and68)is detected using same fluorescent dye, while HPV16, HPV18 and betaglobin signals (internal control)signals are each detected with their owndedicated fluorescent dye. Test Limitations: The Yazan HPV test detects DNA of the above [id number] high-risk types. This test does not detect DNA of HPV low-risk types(e.g.6, 11, 42, 43, 44). The performance of the Yazan HPV test has notbeen adequately established for HPV vaccinated individuals. Test only theindicated specimen type. The Yazan HPV test has only been validated foruse with cervical specimens collected in PreservCyt solution using a PapPerfect plastic spatula and Cytobrush plus GT gentle touch. Detection ofhigh-risk HPV is dependent on the number of copies present in the specimenand may be affected by specimen collection methods, patient factors, stageof infection and the presence of interfering substances. A negativehigh-risk HPV result does not exclude the possibility of future cytologicHSIL or underlying CIN2-3 or cancer. Reference: Laboratory Procedure Manual for yazan HPV Test ([employer] Disclaimer: Yazan HPV test does not constitute a definitive HPV report forall HPV infection individuals. Thus, interpretation is given as aprobability. It should be realized that there are many possible sources ofdiagnostic error. Genotyping errors can result from trace contamination ofpolymerase chain reactions and from rare genetic variants that interferewith analysis. [facility] is certified by CLIA([id number]) for high complexity clinical testing. I attest I have personally reviewed the specimen/slides and agree with theabove findings.Darren Romero MDElectronic SignatureVerified: :00NGP/JHResident:CIGAR MAKING SUPERVISOR CYTOLOGIC DIAGNOSIS INTERPRETATION Cervical/Vaginal:- Negative for intraepithelial lesion or malignancy. CIGAR MAKING SUPERVISOR CYTOLOGIC ADEQUACY INTERPRETATION Satisfactory for interpretation. Endocervical cells present. CIGAR MAKING SUPERVISOR CYTOLOGIC CLINICAL HISTORY Date of LMP: 03-19-17 : _ Hormones: _ Other clinical information: _ The Pap Smear is a screening test designed to help detect premalignant andmalignant conditions of the uterine cervix. It is not a diagnostic testand should not be used as a sole means of detecting cervical cancer. Bothfalse-negative and false- positive reports occur.Solutions Sales Executive:[id number] 12:41Completed by: Evangelista Mclain Signature 10-Apr-2017 12:41GYN CYTOLOGIC GROSSDESCRIPTION Received a thin prep vial with 35 ml of hazy fluid. Adalberto Carlson MD PATHOLOGY/CYTOLOGY ORDERABLES Fi nal Result MCG CONVERSION from Last 3 Months or Most Recently Relevant to Health Maintenance Insurance MEDICAID / [place] MED[place] / [place] Care Teams Pastry Cook Apprentice Relationship Specialty Start Date End Date Gabriel Blount MD PCP - General Family Medicine 05/30/24
--- OUTSIDE RECORDS SUMMARY | 2025-04-19 18:06 | XMS_ITS | Patient Health Record ---
Author Organization [facility] Address [address] [place] [id number] Care Team Providers Care Zipper Joiner Name Role Phone Keron Serrato Primary Care Provider Allergies No Known Allergies Results Component Value Reference Range Flag Notes LIPID PANEL WITH RATIOS Reviewed date:07/11/2024 08:40:57 AM Interpretation:LDL 117, HDL 41 Performing Lab: Notes/Report: PATIENT COULD NOT VOID/PMD COLLECTION KIT GIVEN TO PATIENT. PATIENT ADVISED TO RETURN. CHOLESTEROL, TOTAL 178 <200 mg/dL N HDL CHOLESTEROL 41 > OR = 50 mg/dL L TRIGLYCERIDES 102 <150 mg/dL N LDL-CHOLESTEROL 117 H Reference range: <100 Desirable range <100 mg/dL for primary prevention; <70 mg/dL for patients with CHD or diabetic patients with > or = 2 CHD risk factors. LDL-C is now calculated using the Maria Guadalupe calculation, which is a validated novel method providing better accuracy than the Friedewald equation in the estimation of LDL-C. Yannick PALOMO et al. MARY. 2013;310(19): 8161-1091 (http://education.[employer].com/faq/FAQ16 4) CHOL/HDLC RATIO 4.3 <5.0 (calc) N LDL/HDL RATIO 2.9 Below average Risk: <2.34 Average Risk: 2.35-4.12 Moderate Risk: 4.13-5.56 High Risk: >5.57 NON HDL CHOLESTEROL 137 <130 mg/dL (calc) H For patients with diabetes plus 1 major ASCVD risk factor, treating to a non-HDL-C goal of <100 mg/dL (LDL-C of <70 mg/dL) is considered a therapeutic option. TSH+FREE T4 Reviewed date:07/11/2024 08:38:43 AM Interpretation:normal Performing Lab: Notes/Report: PATIENT COULD NOT VOID/PMD COLLECTION KIT GIVEN TO PATIENT. PATIENT ADVISED TO RETURN. TSH 1.03 N Reference Range > or = 20 Years 0.40-4.50 Ranges First trimester 0.26-2.66 Second trimester 0.55-2.73 Third trimester 0.43-2.91 T4, FREE 1.2 0.8-1.8 ng/dL N CBC (H/H, RBC, INDICES,$WBC, PLT) Reviewed date:07/11/2024 08:38:58 AM Interpretation:WBC 12.8 Performing Lab: Notes/Report: PATIENT COULD NOT VOID/PMD COLLECTION KIT GIVEN TO PATIENT. PATIENT ADVISED TO RETURN. WHITE BLOOD CELL COUNT 12.8 3.8-10.8 Thousand/uL H RED BLOOD CELL COUNT 5.12 3.80-5.10 Million/uL H HEMOGLOBIN 14.9 11.7-15.5 g/dL N HEMATOCRIT 43.7 35.0-45.0 % N MCV 85.4 80.0-100.0 fL N MCH 29.1 27.0-33.0 pg N MCHC 34.1 32.0-36.0 g/dL N For adults, a slight decrease in the calculated MCHC value (in the range of 30 to 32 g/dL) is most likely not clinically significant; however, it should be interpreted with caution in correlation with other red cell parameters and the patient's clinical condition. RDW 11.7 11.0-15.0 % N PLATELET COUNT 368 140-400 Thousand/uL N MPV 10.4 7.5-12.5 fL N ALBUMIN, RANDOM URINE W/CREA TININE Reviewed date:08/19/2024 09:14:21 AM Interpretation: Performing Lab: Notes/Report: Comp. Metabolic Panel (14) Reviewed date:07/11/2024 08:38:21 AM Interpretation: Performing Lab: Notes/Report: PATIENT COULD NOT VOID/PMD COLLECTION KIT GIVEN TO PATIENT. PATIENT ADVISED TO RETURN. GLUCOSE 116 65-99 mg/dL H Fasting reference interval For someone without known diabetes, a glucose value between 100 and 125 mg/dL is consistent with prediabetes and should be confirmed with a follow-up test. UREA NITROGEN (BUN) 23 7-25 mg/dL N CREATININE 1.00 0.50-0.99 mg/dL H EGFR 71 > OR = 60 mL/min/1.73m2 N BUN/CREATININE RATIO 23 6-22 (calc) H SODIUM 144 135-146 mmol/L N POTASSIUM 3.8 3.5-5.3 mmol/L N CHLORIDE 107 98-110 mmol/L N CARBON DIOXIDE 24 20-32 mmol/L N CALCIUM 9.7 8.6-10.2 mg/dL N PROTEIN, TOTAL 7.1 6.1-8.1 g/dL N ALBUMIN 4.4 3.6-5.1 g/dL N GLOBULIN 2.7 1.9-3.7 g/dL (calc) N ALBUMIN/GLOBULIN RATIO 1.6 1.0-2.5 (calc) N BILIRUBIN, TOTAL 0.8 0.2-1.2 mg/dL N ALKALINE PHOSPHATASE 80 31-125 U/L N AST 15 10-30 U/L N ALT 11 6-29 U/L N Reason For Referral No Information Medications Medication SIG (Take, Route, Frequency, Duration) Notes Start Date End Date Status Metoprolol Tartrate 25 MG Tablet TAKE 1 TABLET BY MOUTH 2 TIMES A DAY Orally Twice a day; Duration: 3 days Active Atorvastatin Calcium 20 MG Tablet 1 tab(s) orally once a day (at bedtime); Duration: 30 day(s) 11/16/2021 Active metroNIDAZOLE 0.75 % Cream 1 application Externally Twice a day; Duration: 30 days please dispense largest tube available 08/11/2022 Active Flonase Allergy Relief 50 MCG/ACT Suspension 1 spray in each nostril once a day; Duration: 30 days Active Methocarbamol 750 MG Tablet 2 tab(s) orally twice a day; Duration: 30 day(s) Muscle relaxer Active Claritin 10 MG Tablet 1 tab(s) orally once a day; Duration: 30 day(s) Seasonal allergies Active metFORMIN HCl 500 MG Tablet 1 tab(s) orally 2 times a day; Duration: 90 days Active amLODIPine Besylate 5 MG Tablet 1 tab(s) orally once a day; Duration: 90 days Active Loratadine 10 MG Tablet 1 tablet Orally Once a day; Duration: 30 day(s) 08/11/2022 Active Albuterol Sulfate HFA 108 (90 Base) MCG/ACT Aerosol Solution 2 puff(s) inhaled every 4 hours as needed for cough or wheezing; Duration: 180 days 03/20/2023 Active Omeprazole 40 MG Capsule Delayed Release 1 cap(s) orally once a day; Duration: 90 days Active Losartan Potassium-HCTZ 100-25 MG Tablet 1 tablet Orally Once a day; Duration: 30 days Active Sulfamethoxazole-Trime thoprim 800-160 MG Tablet 1 tablet Orally twice a day; Duration: 10 days 07/10/2024 Active Social History Tobacco Use: Social History Observation Description Date Details (start date - stop date) Current Smoker NA - NA Social History Sexual Orientation Social Info Question Answer Notes Sexual Orientation Sexual Orientation Straight ( not lesbian or almaguer) Gender Identify Gender Identity Female General info Social Info Question Answer Notes Alcohol Did you have drink c ontaining alcohol in past year No Points 0 Interpretation Negative SMOKING HISTORY: Do you smoke or use other tobacco p roducts Current How ofter do you smoke cigarettes/use tobacco products every day How many cigarettes do you smoke /or # of times you use tobacco products per day? 6 to 10 How soon after waking do you smoke your first cigarette/use tobacco products? 6-30 min How interested are you in stopping smoking/tobacco products? not ready to quit Additional Findings: Tobacco User Heavy cigarett e smoker (20-39 cigs/day) Comprehensive Health Assessm ent Social Info Question Answer Notes : Date of assessment 07/10/2024 Reconciled Immunizations with Grits Yes Assessed Family/social cultural characteristics Yes Assessed communication needs Yes Medical History of Family Documented Yes Assessed Behaviors Affecting Health Yes Mental health/Substance abuse of patient and fam joni Yes Assessment for health literacy Yes Dental Query performed 08/11/2022 Dental care in the past 12 months? Yes Problems Problem Type SNOMED Code ICD Code Onset Dates Problem Status W/U Status Risk Notes Problem Body mass index 30.00 to 34.99 (526425524247180) Body mass index (BMI) 32.0-32.9, adult (Z68.32) 07/10/19 25 Active confirmed Problem Obese (934082444) Obese (E66.9) 07/10/19 25 Active confirmed Problem Tobacco user (008354889) Nicotine dependence, cigarettes, uncomplicated (F17.210) Active confirmed Problem Obese class II (475209488684065) Body mass index (BMI) 35.0-35.9, adult (Z68.35) Active confirmed Problem Body mass index 35.00 to 39.99 (038157991406727) Body mass index (BMI) 36.0-36.9, adult (Z68.36) Active confirmed Problem Body mass index 35.00 to 39.99 (989143734265367) Body mass index (BMI) 37.0-37.9, adult (Z68.37) Active confirmed Problem Body mass index 35.00 to 39.99 (113494265935691) Body mass index (BMI) 38.0-38.9, adult (Z68.38) Active confirmed Problem Hyperlipidemia (54081243) Hyperlipidemia (E78.5) Active confirmed Problem Gastroesophageal reflux disease (920807017) GERD (gastroesophageal reflux disease) (K21.9) Active confirmed Problem Type 2 diabetes mellitus (92119990) DMII (diabetes mellitus, type 2) (E11.9) Active confirmed Problem Seasonal allergy (230294396) Seasonal allergies (J30.2) Active confirmed Problem Upper respiratory infection (48721130) URI (upper respiratory infection) (J06.9) Active confirmed Problem Essential hypertension (72658960) Essential hypertension (I10) Active confirmed Problem Schizoaffective disorder (59373846) Schizo affective schizophrenia (F25.0) Active confirmed Problem Rosacea (493901732) Rosacea (L71.9) Active conf irmed Problem Counseling (497914544) Drug or alcohol risk assessment or counseling (Z71.89) Active confirmed Problem Visual Disturbance (36750166) Blurry vision, bilateral (H53.8) Active confirmed Problem Low back pain (859582629) Low back pain, unspecified (M54.50) Active confirmed Vital Signs Heart Rate 92 /min 07/10/2024 Temperature 97.3 degrees Fahrenheit 07/10/2024 Respiratory Rate 16 /min 07/10/2024 Oximetry 98 % 07/10/2024 Blood pressure diastolic 100 mm Hg 07/10/2024 Weight-kg 82.42 kg 07/10/2024 Height 63 in 07/10/2024 Blood pressure systolic 156 mm Hg 07/10/2024 Weight 181.7 lbs 07/10/2024 BMI 32.18 kg/m2 07/10/2024 Encounters Encounter Location Date [facility] [address] [place] [address] 07/10/2024 Keron Serrato Obese E66.9 ; Dietar y counseling Z71.3 ; Exercise counseling Z71.89 ; Body mass index (BMI) 32.0-32.9, adult Z68.32 ; Essential hypertension I10 ; DMII (diabetes mellitus, type 2) E11.9 ; GERD (gastroesophageal reflux disease) K21.9 ; URI (upper respiratory infection) J06.9 ; Seasonal allergies J30.2 ; Rosacea L71.9 and Wound, open, finger S61.A Assessments Encounter Date Diagnosis (ICD Code) Assessment Notes Treatment Notes Treatment Clinical Notes Section Notes 07/10/2024 Dietary counseling (ICD-10 - Z71.3) 07/10/2024 Obese (ICD-10 - E66.9) 07/10/2024 Exercise counseling (ICD-10 - Z71.89) 07/10/2024 Body mass index (BMI) 32.0-32.9, adult (ICD-10 - Z68.32) 07/10/2024 Essential hypertension (ICD-10 - I10) 07/10/2024 DMII (diabetes mellitus, type 2) (ICD-10 - E11.9) 07/10/2024 GERD (gastroesophageal reflux disease) (ICD-10 - K21.9) 07/10/2024 URI (upper respiratory infection) (ICD-10 - J06.9) 07/10/2024 Seasonal allergies (ICD-10 - J30.2) 07/10/2024 Rosacea (ICD-10 - L71.9) 07/10/2024 Wound, open, finger (ICD-10 - S61.209A) advised she see wound clinic at [facility] Plan Of Treatment Pending Test Test Name Order Date Hemoglobin A1c 01/11/2022 CBC With Differential/Platelet 3 Lipid Panel With LDL/HDL Ratio 3 Lipid Panel 01/11/2022 Comp. Metabolic Panel (14) 08/11/2022 TSH, 3RD GENERATION W/REFLEX TO FT4 07/20 Albumin/Creat Ratio, Random Ur 3 Insurance Providers Payer Name Payer Address Payer Phone Subscriber Number Group Number Insured Name Patient Relationship to Insured Coverage Start Date Coverage End Date [place] [address] [place] [phone] [id number] [employer]il Self - patient is the insured 2 Medical (General) History Medical History History ICD Code Hypertension type 2 diabetes hypercholestrolemia back pain Carpal Tunnel Headaches Surgical History Surgery Date(Month/Year) carpal tunnel
--- OUTSIDE RECORDS SUMMARY | 2025-04-19 18:06 | XMS_ITS | Encounter Summary ---
Author Organization [facility] Address [address] [place] [address] Care Team Providers Care Macaroni Maker Name Role Phone Unavailable Primary Care Provider Unavailabl e Encounter Details Date Type Department Care Team (Late st Contact Info) Description 12/17/2019 Historical Anesthesia [facility] [address] [place] [id number] Ciro Reynoso [address] [place], [place] [id number] Social History Tobacco Use Types Packs/Day Years Used Date Smoking Tobacco: Never Assessed Comments Unknown Sex and Gender Information Value Date Recorded Sex Assigned at Not on file Legal Sex Female 2:27 AM EST Gender Identity Not on file Sexual Orientation Not on file documented as of this encounter Plan of Treatment Not on file documented as of this encounter Visit Diagnoses Not on filedocumented in this encounter
[2025-04-19 18:13] LABS: INR 1.1; Prothrombin Time 13.7 Seconds (11.1-14.7)
[2025-04-19 18:14] LABS: Partial Thromboplastin Time 24.5 Seconds (22.3-36.8)
[2025-04-19 18:27] LABS: Alanine Aminotransferase 25 U/L (6-35); Albumin Level 3.9 g/dL (3.5-5.1); Alkaline Phosphatase 69 U/L (38-126); Anion Gap 7 mmol/L (4-12); Aspartate Amino Transferase 33 U/L (14-36); Bilirubin,Total 0.8 mg/dL (0.2-1.3); Blood Urea Nitrogen 15 mg/dL (7-17); Calcium 9.1 mg/dL (8.4-10.2); Carbon Dioxide 26 mmol/L (22-30); Chloride 106 mmol/L (98-107); Estimated CRCL calculation 80 ml/min; Estimated Glomerular Filt Rate > 60; Glucose 157 mg/dL (65-110); Potassium 3.5 mmol/L (3.4-5.0); Sodium 139 mmol/L (137-145); Total Protein 6.9 g/dL (6.3-8.2)
[2025-04-19 18:30] LABS: NT Pro B Type Natriuretic Pept 208 pg/mL (19.9-100); Troponin I < 0.012 ng/mL (0.000-0.034)
[2025-04-19 18:54] LABS: BEDSIDEPREGUCG Negative (Negative)
[2025-04-19 19:02] LABS: Add Urine Microscopic? NO; Appearance Urine Clear (Clear); Glucose Urine UA Trace mg/dL (Negative); Leukocyte Esterase Ur Negative LEU/UL (Negative); Nitrate Urine Negative (Negative); Specific Grav Ur 1.023 (1.001-1.035)
--- NOTE | 2025-04-19 19:15 | PC.NURSE ---
Report received from VINCE Hall. Assumed care of patient at this time.
== END 2025-04-19 20:20 | disposition home or self-care (01) ==
PROVIDERS: Emergency Provider Emergency Medicine
DX: I10 Essential (primary) hypertension (principal); T46.4X6A Underdosing of angiotensin-converting-enzyme inhibitors, initial encounter; T46.1X6A Underdosing of calcium-channel blockers, initial encounter; T46.5X6A Underdosing of other antihypertensive drugs, initial encounter; Z91.138 Patient's unintentional underdosing of medication regimen for other reason
CPT/HCPCS: 36415; 70450; 71045; 80053; 81003; 81025; 83880; 84484; 85025; 85610; 85730; 93005; 96374; 96376; 99284; J0616